=== PATIENT | male | born 1980 | race Caucasian/White ===

== ENCOUNTER 2020-08-12 15:46 | Emergency (ER) | payer BC ==
[2020-08-12 15:55] VITALS: PULSE 86
[2020-08-12] MEDS ORDERED: CEPHALEXIN 500MG STARTER PACK 4 CAP BTL PO STA (16:10)
[2020-08-12] MEDS ORDERED: LIDOCAINE 1% INJ 10MG/ML (20 ML MDV) SQ STA (16:10)
[2020-08-12] MEDS ORDERED: CEPHALEXIN 500 MG CAP PO STA (16:10)
--- NOTE | 2020-08-12 16:35 | ED ---
General Adult HPI - General Chief complaint: Wound/Laceration Stated complaint: L Leg Injury Time Seen by Provider: 08/12/20 16:05 Source: patient, RN notes reviewed, old records reviewed Mode of arrival: wheelchair Limitations: no limitations - History of Present Illness Initial comments: 39-year-old male patient to the ED for evaluation of chainsaw laceration to the left anterior thigh. Reports tetanus is updated last year. Denies any other acute complaints. Systemic: Pt denies fatigue, fever/chills, rash. Pt denies weakness, night sweats, weight loss. Neuro: Pt denies headache, visual disturbances, syncope or pre-syncope. HEENT: Pt denies ocular discharge or irritation, otalgia, rhinorrhea, pharyngitis or notable lymphadenopathy. Cardiopulmonary: Pt denies chest pain, SOB, heart palpitations, dyspnea on exertion. Abdominal/GI: Pt denies abdominal pain, n/v/d. : Pt denies dysuria, burning w/ urination, frequency/urgency. Denies new onset urinary or bowel incontinence. MSK: Pt denies myalgia, loss of strength or function in extremities. Neuro: Pt denies new onset weakness, paresthesias. - Related Data Previous Rx's Medication Instructions Recorded Cephalexin [Keflex] 500 mg PO Q6HR 10 Days #40 cap 08/12/20 Allergies Allergy/AdvReac Type Severity Reaction Status Date / Time No Known Allergies Allergy Verified 08/12/20 15:54 Review of Systems ROS Statement: Those systems with pertinent positive or pertinent negative responses have been documented in the HPI. ROS Other: All systems not noted in ROS Statement are negative. Past Medical History Past Medical History: No Reported History History of Any Multi-Drug Resistant Organisms: None Reported Additional Past Surgical History / Comment(s): eye surgery Past Psychological History: Anxiety Smoking Status: Never smoker Past Alcohol Use History: Occasional Past Drug Use History: Marijuana General Exam - General Exam Comments Initial Comments: Constitutional: NAD, AOX3, Pt has pleasant affect. HEENT: NC/AT, trachea midline, neck supple, no lymphadenopathy. Mucous membranes moist. Eyes PERRLA, EOM intact. There is no scleral icterus. No pallor noted. Cardiopulmonary: RRR, no murmurs, rubs or gallops, no JVD noted. Lungs CTAB in anterior and posterior loomis. No peripheral edema. Abdominal exam: Abdomen soft and non-distended. Abdomen non-tender to palpation in all 4 quadrants. Neuro: CN II-XII grossly intact. No nuchal rigidity. No raccon eyes, no ayers sign, no hemotympanum. No cervical spinal tenderness. MSK: 8 cm laceration left anterior thigh. Vigorously irrigated 2 L of normal saline. Flexion and extension and strength of lower extremities intact. Sensation is intact. Distal pulses are intact and equal Approximated with 11 simple interrupted sutures. No muscular or fascial involvement. Limitations: no limitations Course Vital Signs 08/12/20 08/12/20 08/12/20 15:52 16:54 17:54 Temperature 99.1 F Pulse Rate 86 Respiratory 20 18 18 Rate Blood Pressure 124/68 O2 Sat by Pulse 97 Oximetry 08/12/20 18:52 Temperature 98.6 F Pulse Rate 86 Respiratory 18 Rate Blood Pressure 127/66 O2 Sat by Pulse 96 Oximetry Procedures - Laceration Laceration #1 Consent Obtained: verbal consent Indication: laceration Site: lower extremity (8cm) Size (cm): 8 Description: linear Depth: simple, single layer Anesthetic Used: lidocaine 1% Anesthesia Technique: local infiltration Amount (mls): 6 Pre-repair: wound explored, irrigated extensively, deep structures intact Size of Sutures: 4-0 Number of Sutures: 11 Technique: simple, interrupted, vertical mattress Patient Tolerated Procedure: well, no complications Additional Comments: vigorously irrigated with 11 sutures Medical Decision Making - Medical Decision Making 39-year-old male patient ED for laceration from a chainsaw. Tetanus is up-to-date. Vital signs stable, afebrile. Laceration was vigorously irrigated and repaired. Plain films were laceration deformity. Patient discharged with outpatient follow-up and return precautions. Case discussed with Dr. [place]. Disposition Clinical Impression: Laceration Disposition: HOME SELF-CARE Condition: Stable Instructions (If sedation given, give patient instructions): Care For Your S titches (ED), Laceration (ED) Additional Instructions: Take antibiotics as directed. Follow up with PCP in 1-2 days. Please return for suture removal: Extremities: 7-10 days Please monitor for signs and symptoms of infection including: redness, warmth, drainage, discharge. Please return to ED if these signs or symptoms occur, new signs or symptoms develop or if condition worsens in anyway. Prescriptions: Cephalexin [Keflex] 500 mg PO Q6HR 10 Days #40 cap Is patient prescribed a controlled substance at d/c from ED?: No Referrals: Nonstaff,Physician [Primary Care Provider] - 1-2 days
--- NOTE | 2020-08-12 16:53 | XR ---
EXAMINATION TYPE: XR femur LT DATE OF EXAM: 08/12/2020 COMPARISON: None HISTORY: Left thigh laceration from chainsaw TECHNIQUE: Femur is examined in 2 views FINDINGS: There is a large laceration over the distal diaphyseal lateral femur. No radiopaque foreign bodies are evident. No osseous abnormality is evident. IMPRESSION: 1. No acute osseous abnormality. 2. Deep soft tissue injury distal lateral thigh
[2020-08-12 18:52] VITALS: RESP 18
[2020-08-12 18:53] VITALS: BP 127/66; TEMP 98.6
== END 2020-08-12 18:57 | disposition home or self-care (01) ==
LOC: EC 15:46
DX: S71.112A Laceration without foreign body, left thigh, initial encounter (principal); W31.2XXA Contact with powered woodworking and forming machines, initial encounter
CPT/HCPCS: 73552; 99283; 12004; J2001